=== PATIENT | female | born 1985 | race Caucasian/White ===

== ENCOUNTER 2016-11-02 23:46 | Emergency (ER) | payer MEDICAID ==
--- NOTE | 2016-11-03 09:16 | ER ---
ADMIT: 11/02/2016 RM/LOC: ER [facility] MR#: [id number] [id number] [address] SHAYY BUSTAMANTE [address] [place] [address] Emergency Room Report SEX: F AGE: 31 : 1985 DATE: 11/02/2016 HISTORY OF PRESENT ILLNESS: This is a 31-year-old female who was doing dishes at home and with a ceramic container cut her left wrist. She is right-handed. She is in with her and small children. She has had history of hypothyroidism. She is a smoker, half a pack a day and drinks alcohol occasionally. Upon examination, she is able to move her hand and fingers without any difficulty, so tendons are intact. Good capillary refill. She does have in the same area some scars like from previous attempts to wrist slashing among tattoos that are look like homemade tattoos. PROCEDURE: Length of the wound 6 cm location left anterior wrist, linear, clean, neurovascularly intact. No tendon injury. Lidocaine with epi was injected in the borders approximation done with 4-0 Prolene, 6 horizontal mattress sutures and one single interrupted. Dressing applied. Pressure dressing instructions given for removal of sutures and care of the wound. CLINICAL DIAGNOSIS: Laceration to left wrist accidental. LIZZ Haider / Vignesh Stevenson MD / avisl JOB #: [id number] CC: Vignesh Stevenson MD, Attending Physician Marcial Martinez MD, Family Physician
== END 2016-11-03 00:43 | disposition home or self-care (01) ==
LOC: ER 23:46
PROC: 0HQEXZZ Repair Left Lower Arm Skin, External Approach (ICD-10-PCS; principal; 2016-11-02)
DX: S61.512A Laceration without foreign body of left wrist, initial encounter (principal); F17.210 Nicotine dependence, cigarettes, uncomplicated; E03.9 Hypothyroidism, unspecified; Z98.890 Other specified postprocedural states; Z79.899 Other long term (current) drug therapy; Z88.1 Allergy status to other antibiotic agents; W26.0XXA Contact with knife, initial encounter; Y93.89 Activity, other specified; Y92.009 Unspecified place in unspecified non-institutional (private) residence as the place of occurrence of the external cause; Z23 Encounter for immunization